=== PATIENT | male | born 1980 | race Caucasian/White ===

== ENCOUNTER 2017-04-05 22:56 | Emergency (ER) | payer OTHER ==
[~2017-04-05] VITALS: Ht 162.6 cm; Wt 77.1 kg
[~2017-04-05 22:56] MED LIST: ALBU8.5H2 IH; PRED20TA PO
[2017-04-05] MEDS ORDERED: HYDR-3812 PO (23:41)
--- NOTE | 2017-04-05 23:42 | ED EENT ---
History of Present Illness General Chief Complaint: Dental Problems/Pain Stated Complaint: TOOTH ACHE Nursing Triage Note: c/o R lower dental pain x 4 hours, reports motrin isn't helping pain Source: patient Exam Limitations: no limitations History of Present Illness Time seen by provider: 23:37 Initial Comments Patient has ER by private conveyance because about 5 hours ago he was biting down on something and chipped off a tooth on the right lower jaw. He says he has a known large cavity there and is seen by [facility] in [place]. He says probably walk and and be seen Saturday morning and that was planned. He is taking ibuprofen 800 mg and Tylenol 650 mg and still having a lot of pain. He has nystatin at home but has not used it yet. He is not having any fevers or chills nausea or vomiting. He is not having any drainage from his tooth or his mouth. Allergies and Home Medications Allergies Coded Allergies: No Known Drug Allergies (Unverified , 02/18/15) Home Medications No Active Prescriptions or Reported Meds Review of Systems Constitutional: No chills, No fever, No malaise Nose: denies pain, denies bloody discharge Mouth: see HPI, denies clots, denies loose teeth, pain, denies swelling, denies bloody discharge, denies purulent discharge, denies previous injury Throat: denies pain, denies hoarse Respiratory: No cough, No short of breath Skin: No pruritus, No rash Past Rbzpjqa-Sjcrbb-Wivqci Hx Patient Social History Alcohol Use: Denies Use Recreational Drug Use: No Smoking Status: Current Everyday Smoker Type Used: Cigarettes Recent Foreign Travel: No Contact w/Someone Who Travel: No Recent Infectious Disease Expo: No Recent Hopitalizations: No Seasonal Allergies Seasonal Allergies: Yes Surgeries HX Surgeries: Yes Surgeries: Appendectomy, Gallbladder Respiratory Hx Respiratory Disorders: No Cardiovascular Hx Cardiac Disorders: Yes Cardiac Disorders: High Cholesterol Neurological Hx Neurological Disorders: No Reproductive System Hx Reproductive Disorders: No Sexually Transmitted Disease: No Genitourinary Hx Genitourinary Disorders: No Gastrointestinal Hx Gastrointestinal Disorders: Yes Gastrointestinal Disorders: Gall Bladder Disease Musculoskeletal Hx Musculoskeletal Disorders: No Endocrine Hx Endocrine Disorders: No HEENT HX ENT Disorders: No Cancer Hx Cancer: No Psychosocial Hx Psychiatric Problems: Yes Behavioral Health Disorders: PTSD Integumentary HX Skin/Integumentary Disorder: No Blood Transfusions Hx Blood Disorders: No Family Medical History Significant Family History: Diabetes, Hypertension Family Medial History: Cardiovascular disease Hypertension Physical Exam Vital Signs Vital Sign - Last 12Hours 04/05/17 23:05 Temp 98.7 Pulse 76 Resp 18 B/P (MAP) 149/98 Pulse Ox 76 O2 Delivery Room Air General Appearance: WD/WN, no apparent distress Eyes: bilateral eye EOMI, bilateral eye PERRL, bilateral eye normal inspection Ears: bilateral ear auricle normal Nose: normal inspection, No discharge, No sinus tenderness Mouth/Throat: dental tenderness, No excessive drooling, other (diffuse dental caries with a fresh broken chip off of a mostly lower right mandible anterior molar.) Neurologic/Psychiatric: alert, oriented x 3 Skin: normal color, warm/dry Progress/Results/Core Measures Results/Orders Vital Signs/I&O Vital Sign - Last 12Hours 04/05/17 23:05 Temp 98.7 Pulse 76 Resp 18 B/P (MAP) 149/98 Pulse Ox 76 O2 Delivery Room Air Blood Pressure Mean: 115 Departure Impression Impression: Primary Impression: Dental caries Disposition: 01 HOME, SELF-CARE Condition: Stable Departure-Patient Inst. Decision time for Depature: 23:39 Referrals: BRENDON PIMENTEL MD (PCP/Family) Primary Care Physician Patient Instructions: Fractured Tooth (DC) Add. Discharge Instructions: He should continue to take Tylenol 1000 mg every 8 hours as needed as well as ibuprofen 800 mg every 8 hours as needed. You can apply heat to the area alternated with ice. He can also use distraction such as watching TV or reading about. If she cannot get her pain controlled these methods then you also be given a prescription for hydrocodone. While you're on hydrocodone you can have constipation or drowsiness. He should not drive or using this medicine. If you have constipation you should use a laxative such as MiraLAX. If you're having strong fever or purulence coming from her mouth and you should return to the ER immediately. Otherwise plan on following up with your dentist Saturday. All discharge instructions reviewed with patient and/or family. Voiced understanding. Scripts Hydrocodone/Acetaminophen (Hydrocodon -Acetaminophen 5-325) 1 Each Tablet 1 EACH PO Q6H Y for BREAKTHROUGH PAIN, #8 TAB 0 Refills Prov: SUE ROSADO 04/05/17 Work/School Note: Work Release Form Date Seen in the Emergency Department: Apr 05, 2017 Return to Work: Apr 06, 2017 Restrictions: No Restrictions Copy Copies To 1: BRENDON PIMENTEL MD, TITUS J Apr 05, 2017 23:42
[2017-04-05 23:46] VITALS: BP 149/98
--- OUTSIDE RECORDS SUMMARY | 2017-04-09 08:35 | XMS REPORT | CCD ---
Author Author JIM TOBAR Unknown Address [address] [address] [address] [place], [place] [id number] Care Team Providers Care Putty Maker Name Role Phone [facility] Attphys ROSARIONADIA DO Prisurg W., CONY Orozco NASST T., GIAN NEWBY NASST J., SAMM NASST B., CINTHYA NASST K., YE NASST S., KAMLESH Palafox NASST C., ROZINA NASST R., ELIJAH NASST R., LUKE Starks NASST B., SHARAN NASST Vital Signs Vital Sign Value Unit Date/Time Recent/Initial? Weight Measured 203.6 lbs 01/12/2016 19:30 Initial VS Height 0.64 in 01/12/2016 19:30 Initial VS BMI (Body Mass Index) 75.02 kg/m^2 01/12/2016 19:30 Initial VS BSA (Body Surface Area) 0.2 m^2 01/12/2016 19:30 Initial VS BP Systolic 116 mmHg 01/12/2016 19:45 Initial VS BP Diastolic 68 mmHg 01/12/2016 19:45 Initial VS Respiratory Rate 20 bpm 01/12/2016 19:45 Initial VS Heart Rate 97 bpm 01/12/2016 19:45 Initial VS O2 % BldC Oximetry 96 % 01/12/2016 19:45 Initial VS Body Temperature 98.3 degrees 01/12/2016 19:45 Initial VS BP Systolic 127 mmHg 01/14/2016 10:27 Most Recent VS BP Diastolic 88 mmHg 01/14/2016 10:27 Most Recent VS Respiratory Rate 18 bpm 01/14/2016 10:27 Most Recent VS Heart Rate 86 bpm 01/14/2016 10:27 Most Recent VS O2 % BldC Oximetry 96 % 01/14/2016 10:27 Most Recent VS Body Temperature 98.5 degrees 01/14/2016 10:27 Most Recent VS Allergies Allergy Code Allergy Type Reaction Status No Known Drug Allergies 0 No known drug allergies Active Procedures Procedure Code Procedure Type Date CX CHEST [address] 01/14/2016 CT MAXILLOFACIAL W/CONTRAST 189420904 SNOMED CT 2015 ABDOMEN ACUTE SERIES 7493224 SNOMED CT 01/12/2016 CULTURE BLOOD 32201351 SNOMED CT 01/14/2016 CULTURE BLOOD 48569057 SNOMED CT 01/14/2016 BASIC METABOLIC PANEL 312204004 SNOMED CT 01/14/2016 CBC W/ AUTO DIFF (RFLX MAN DIFF IF IND) 4332626 SNOMED CT 01/14/2016 HGB A1C (SEND-OUT) 46200215 SNOMED CT 01/12/2016 LIPID PANEL 30854538 [address] 01/13/2016 COMPREHENSIVE METABOLIC PANEL 927050633 SNOMED CT 2015 CBC W/ AUTO DIFF (RFLX MAN DIFF IF IND) 8102453 SNOMED CT 01/13/2016 LACTIC ACID 982[address] 01/12/2016 LACTIC ACID 1047[address] 01/12/2016 INFLUENZA A & B 906936399 SNOMED CT 01/12/2016 RAPID DRUG SCREEN 479889188 SNOMED CT 01/12/2016 UA ROUTINE C&S IF IND 569411400 SNOMED CT 01/12/2016 C REACTIVE PROTEIN 30073667 SNOMED CT 01/12/[address] 01/12/[address] 01/12/2016 TROPONIN-I ADV 294372854 SNOMED CT 01/12/2016 COMPREHENSIVE METABOLIC PANEL 658632115 SNOMED CT 2015 CBC W/ AUTO DIFF (RFLX MAN DIFF IF IND) 8495315 SNOMED CT 01/12/2016 ^CBC W/ MANUAL DIFF 50562492 SNOMED CT 01/14/2016 ^CBC W/ MANUAL DIFF 83068415 SNOMED CT 01/13/2016 ^UA WITH MICRO 326175931 SNOMED CT 01/12/2016 ^CBC W/ MANUAL DIFF 82519756 [facility] CT 01/12/2016 LOCM 300-349 MG/ML, PER ML 783880303 [facility] 01/12/2016 History of Immunizations Unknown or Not Available. Problems Problem Code Start Date Resolved Date Status Facial cellulitis 993991835 Active Results BASIC METABOLIC PANEL - Collect Date/Time: 01/14/2016 06:10 Test Name Code Test Result Test Units Test Ref Range GLUCOSE 2345-7 107 MG/DL L=70 H=100 SODIUM 2951-2 135 MEQ/L L=135 H=148 POTASSIUM 2823-3 4.1 MEQ/L L=3.5 H=5.3 CHLORIDE 2075-0 107 MEQ/L L=96 H=110 CO2 2028-9 20 MEQ/L L=22 H=29 BUN 3094-0 14 MG/DL L=8 H=22 CREATININE 2160-0 0.8 MG/DL L=0.6 H=1.6 CALCIUM 67428-2 8.2 MG/DL L=8.2 H=10.6 AGE 35 yrs GFR NonAA 111 GFR AA 135 eGFR >60 N/A eGFR AA* >60 N/A COMPREHENSIVE METABOLIC PANEL - Collect Date/Time: 01/13/2016 06:45 Test Name Code Test Result Test Units Test Ref Range GLUCOSE 2345-7 120 MG/DL L=70 H=100 SODIUM 2951-2 137 MEQ/L L=135 H=148 POTASSIUM 2823-3 3.8 MEQ/L L=3.5 H=5.3 CHLORIDE 2075-0 107 MEQ/L L=96 H=110 CO2 2028-9 20 MEQ/L L=22 H=29 BUN 3094-0 19 MG/DL L=8 H=22 CREATININE 2160-0 1.0 MG/DL L=0.6 H=1.6 SGOT/AST 1920-8 20 IU/L L=10 H=40 SGPT/ALT 1742-6 35 IU/L L=8 H=54 ALK PHOS 6768-6 66 IU/L L=35 H=115 TOTAL PROTEIN 2885-2 6.5 G/DL L=5.5 H=8.5 ALBUMIN 1751-7 3.9 G/DL L=3.1 H=5.4 TOTAL BILI 1975-2 0.7 MG/DL L=0.0 H=1.5 CALCIUM 88556-9 8.7 MG/DL L=8.2 H=10.6 AGE 35 yrs GFR NonAA 86 GFR AA 104 eGFR >60 N/A eGFR AA* >60 N/A COMPREHENSIVE METABOLIC PANEL - Collect Date/Time: 01/12/2016 15:40 Test Name Code Test Result Test Units Test Ref Range GLUCOSE 2345-7 121 MG/DL L=70 H=100 SODIUM 2951-2 136 MEQ/L L=135 H=148 POTASSIUM 2823-3 3.5 MEQ/L L=3.5 H=5.3 CHLORIDE 2075-0 104 MEQ/L L=96 H=110 CO2 2028-9 20 MEQ/L L=22 H=29 BUN 3094-0 18 MG/DL L=8 H=22 CREATININE 2160-0 1.0 MG/DL L=0.6 H=1.6 SGOT/AST 1920-8 25 IU/L L=10 H=40 SGPT/ALT 1742-6 43 IU/L L=8 H=54 ALK PHOS 6768-6 78 IU/L L=35 H=115 TOTAL PROTEIN 2885-2 7.2 G/DL L=5.5 H=8.5 ALBUMIN 1751-7 4.4 G/DL L=3.1 H=5.4 TOTAL BILI 1975-2 0.7 MG/DL L=0.0 H=1.5 CALCIUM 29633-7 9.5 MG/DL L=8.2 H=10.6 AGE 35 yrs GFR NonAA 86 GFR AA 104 eGFR >60 N/A eGFR AA* >60 N/A LIPASE - Collect Date/Time: 01/12/2016 15:40 Test Name Code Test Result Test Units Test Ref Range LIPASE 3040-3 17 U/L L=8 H=78 LIPID PANEL - Collect Date/Time: 01/13/2016 06:45 Test Name Code Test Result Test Units Test Ref Range TRIGLYCERIDES 3043-7 258 MG/DL L=0 H=135 CHOLESTEROL 2093-3 230 MG/DL L=0 H=199 HDL 2085-9 23 MG/DL L=27 H=67 TOT CHOL/HDL 10.0 L=0.0 H=5.0 LDL (CALC) 2089-1 155 MG/DL L=0 H=129 RAPID DRUG SCREEN - Collect Date/Time: 01/12/2016 17:14 Test Name Code Test Result Test Units Test Ref Range Cannabinoids (THC) NEGATIVE N/A NEG: < 50 ng/ ml Phencyclidine (PCP) NEGATIVE N/A NEG: < 25 ng/ ml Cocaine NEGATIVE N/A NEG: < 300 ng/ml Methamphetamine NEGATIVE N/A NEG: < 1000 ng/ml Opiates NEGATIVE N/A NEG: < 300 ng/ml Amphetamine NEGATIVE N/A NEG: < 1000 ng/ml Benzodiazepines NEGATIVE N/A NEG: < 300 ng/ml Tricyclic Antidepres NEGATIVE N/A NEG: < 300 ng/ ml Methadone NEGATIVE N/A NEG: < 300 ng/ml Barbiturates NEGATIVE N/A NEG: < 200 ng/ml Oxycodone NEGATIVE N/A NEG: < 100 ng/ml Propoxyphene (PPX) NEGATIVE N/A NEG: < 300 ng/ ml CBC W/ AUTO DIFF (RFLX MAN DIFF IF IND) - Collect Date/Time: 01/14/2016 06:10 Test Name Code Test Result Test Units Test Ref Range WBC 28599-3 11.8 TH/CMM L=4.5 H=10.8 RBC 789-8 4.40 ML/CMM L=4.70 H=6.10 HGB 718-7 12.5 G/DL L=14.0 H=18.0 HCT 4544-3 38.4 % L=42.0 H=52.0 MCV 87 FL L=81 H=99 MCH 28.4 PG L=27.0 H=33.0 MCHC 32.6 G/DL L=31.0 H=36.0 RDW SD 45 FL L=36 H=50 RDW CV 14.0 % L=0.0 H=14.8 MPV 9.1 FL L=9.3 H=12.5 PLT 777-3 170 TH/CMM L=130 H=440 NRBC# 0.00 TH/CMM L=0.00 H=0.00 NRBC% 0.0 /100WBC L=0.0 H=2.0 %NEUT 79.7 % %LYMP 10.1 % %MONO 8.5 % %EOS 0.7 % %BASO 0.6 % #NEUT 9.42 TH/CMM L=2.10 H=8.20 #LYMP 1.20 TH/CMM L=0.90 H=5.20 #MONO 1.01 TH/CMM L=0.16 H=1.00 #EOS 0.08 TH/CMM L=0.00 H=0.80 #BASO 0.07 TH/CMM L=0.00 H=0.20 SEGS 79 % BANDS 5 % LYMPHS 11 % MONOS 5 % MANUAL DIFF SEE BELOW N/A ATYP LYMPHS FEW N/A CBC W/ AUTO DIFF (RFLX MAN DIFF IF IND) - Collect Date/Time: 01/13/2016 06:45 Test Name Code Test Result Test Units Test Ref Range WBC 82801-9 22.8 TH/CMM L=4.5 H=10.8 RBC 789-8 4.88 ML/CMM L=4.70 H=6.10 HGB 718-7 13.8 G/DL L=14.0 H=18.0 HCT 4544-3 41.7 % L=42.0 H=52.0 MCV 86 FL L=81 H=99 MCH 28.3 PG L=27.0 H=33.0 MCHC 33.1 G/DL L=31.0 H=36.0 RDW SD 43 FL L=36 H=50 RDW CV 13.5 % L=0.0 H=14.8 MPV 9.4 FL L=9.3 H=12.5 PLT 777-3 206 TH/CMM L=130 H=440 NRBC# 0.00 TH/CMM L=0.00 H=0.00 NRBC% 0.0 /100WBC L=0.0 H=2.0 %NEUT 88.7 % %LYMP 4.4 % %MONO 5.6 % %EOS 0.0 % %BASO 0.4 % #NEUT 20.20 TH/CMM L=2.10 H=8.20 #LYMP 0.99 TH/CMM L=0.90 H=5.20 #MONO 1.27 TH/CMM L=0.16 H=1.00 #EOS 0.00 TH/CMM L=0.00 H=0.80 #BASO 0.08 TH/CMM L=0.00 H=0.20 SEGS 83 % BANDS 13 % LYMPHS 3 % MONOS 1 % MANUAL DIFF SEE BELOW N/A CBC W/ AUTO DIFF (RFLX MAN DIFF IF IND) - Collect Date/Time: 01/12/2016 15:40 Test Name Code Test Result Test Units Test Ref Range WBC 35589-2 27.1 TH/CMM L=4.5 H=10.8 RBC 789-8 5.32 ML/CMM L=4.70 H=6.10 HGB 718-7 15.2 G/DL L=14.0 H=18.0 HCT 4544-3 44.8 % L=42.0 H=52.0 MCV 84 FL L=81 H=99 MCH 28.6 PG L=27.0 H=33.0 MCHC 33.9 G/DL L=31.0 H=36.0 RDW SD 41 FL L=36 H=50 RDW CV 13.3 % L=0.0 H=14.8 MPV 9.3 FL L=9.3 H=12.5 PLT 777-3 224 TH/CMM L=130 H=440 NRBC# 0.00 TH/CMM L=0.00 H=0.00 NRBC% 0.0 /100WBC L=0.0 H=2.0 %NEUT 90.9 % %LYMP 2.8 % %MONO 4.9 % %EOS 0.1 % %BASO 0.4 % #NEUT 24.58 TH/CMM L=2.10 H=8.20 #LYMP 0.77 TH/CMM L=0.90 H=5.20 #MONO 1.32 TH/CMM L=0.16 H=1.00 #EOS 0.03 TH/CMM L=0.00 H=0.80 #BASO 0.10 TH/CMM L=0.00 H=0.20 SEGS 79 % BANDS 11 % LYMPHS 2 % MONOS 7 % BASO 1 % MANUAL DIFF SEE BELOW N/A INFLUENZA A & B - Collect Date/Time: 01/12/2016 15:40 Test Name Code Test Result Test Units Test Ref Range INFLUENZA A & B 6437-8 NO INFLUENZA A OR B DETECTED N/A UA ROUTINE C&S IF IND - Collect Date/Time: 01/12/2016 17:10 Test Name Code Test Result Test Units Test Ref Range COLOR YELLOW N/A NL: YELLOW APPEARANCE CLEAR N/A NL: CLEAR SPEC GRAV 1.015 N/A NL: 1.002 - 1.022 pH 6.0 N/A NL: 5 - 9 PROTEIN TRACE N/A NL: NEGATIVE mg/dl GLUCOSE NEGATIVE N/A NL: NEGATIVE mg/dl KETONE NEGATIVE N/A NL: NEGATIVE mg/dl BILIRUBIN NEGATIVE N/A NL: NEGATIVE BLOOD NEGATIVE N/A NL: NEGATIVE NITRITE NEGATIVE N/A NL: NEGATIVE LEUK SCREEN NEGATIVE N/A NL: NEGATIVE MICRO INDICATED? SEE BELOW N/A WBC/HPF NEGATIVE N/A NL: NEGATIVE RBC/HPF NEGATIVE N/A NL: NEGATIVE CASTS/LPF NEGATIVE N/A NL: NEGATIVE CRYSTALS NEGATIVE N/A NL: NEGATIVE MUCOUS THRDS NEGATIVE N/A NL: NEGATIVE BACTERIA NEGATIVE N/A NL: NEGATIVE EPITH CELLS FEW SQUAMOUS N/A NL: NEGATIVE TRICHOMONAS NEGATIVE N/A NL: NEGATIVE YEAST NEGATIVE N/A NL: NEGATIVE CULT SET UP? NO N/A C REACTIVE PROTEIN - Collect Date/Time: 01/12/2016 15:40 Test Name Code Test Result Test Units Test Ref Range C REACTIVE PROTEIN 1988-5 1.1 MG/DL L=0.0 H= 1.0 TROPONIN-I ADV - Collect Date/Time: 01/12/2016 15:40 Test Name Code Test Result Test Units [place] [address]-8 <0.04 ng/mL L=0.04 H= 0.40 HGB A1C (SEND-OUT) - Collect Date/Time: 01/12/2016 21:35 Test Name Code Test Result Test Units Test Ref Range Hemoglobin A1c 4548-4 6.2 % 4.8-5.6 Estim. Avg Glu (eAG) 23042-6 131 mg/dL LACTIC ACID - Collect Date/Time: 01/12/2016 21:35 Test Name Code Test Result Test Units Test Ref Range LACTIC ACID 2524-7 1.5 mmol/L L=0.5 H=1.6 LACTIC ACID - Collect Date/Time: 01/12/2016 15:40 Test Name Code Test Result Test Units Test Ref Range LACTIC ACID 2524-7 2.3 mmol/L L=0.5 H=1.6 MAGNESIUM - Collect Date/Time: 01/12/2016 15:40 Test Name Code Test Result Test Units Test Ref Range MAGNESIUM 57881-9 2.2 MG/DL L=1.7 H=2.8 Active Medications Medications Administered During Visit Medication Dose Units Frequency Route Date/ Time of Last Dose ACETAMINOPHEN [TYLENOL] TABS 325MG 650 MG PRN PO 01/13/2016 01:15 CLINDAMYCIN IV [PREDEFINED]: 600 MG ADV Q6H 01/12/2016 20:45 ACETAMINOPHEN ES [TYLENOL] TAB : 500 MG 1000 MG PRN PO 01/13/2016 23:51 DANIAL-COLACE (NEW FORMULATION) TABLET 2 TAB BID PO 01/14/2016 08:33 NORCO [HYDROCODONE/APAP] 5/325MG TAB 1 TAB PRN PO 01/14/2016 09:35 CLINDAMYCIN IV [PREDEFINED]: 600 MG ADV Q6H 01/14/2016 08:33 ONDANSETRON [ZOFRAN] INJ 4 MG/2 ML VIAL 4 MG PRN Q 6 HRS SIVP 01/13/2016 01:08 NS 1000 ML IV [PREDEFINED] (7983) CONT IV 01/13/2016 22:45 LEVOFLOXACIN [LEVAQUIN] IV BAMG Q24H 01/14/2016 01:04 FUROSEMIDE (LASIX): 40 MG/4 ML VIAL 40 MG X1 IVP 01/14/2016 09:35 Encounters Encounter Diagnosis Diagnosis Code Start Date Sepsis, unspecified organism [id number] 01/12/2016 Social History Smoking Status Code Start Date End Date Current every day smoker [id number] Patient Decision Aids Patient Decision Aid Cellulitis Discharge Instructions You were admitted to [facility] on 01/12/2016 18:42 with a principal diagnosis of Sepsis, unspecified organism You had the following tests done: BASIC METABOLIC PANEL C REACTIVE PROTEIN CBC W/ AUTO DIFF (RFLX MAN DIFF IF IND) CBC W/ AUTO DIFF (RFLX MAN DIFF IF IND) CBC W/ AUTO DIFF (RFLX MAN DIFF IF IND) COMPREHENSIVE METABOLIC PANEL COMPREHENSIVE METABOLIC PANEL HGB A1C (SEND-OUT) INFLUENZA A & B LACTIC ACID LACTIC ACID LIPASE LIPID PANEL MAGNESIUM RAPID DRUG SCREEN TROPONIN-I ADV UA ROUTINE C&S IF IND You were discharged from [facility] on 01/14/2016 12:00 Should you have any questions prior to discharge, please contact a member of your healthcare team. If you have left the hospital and have any questions, please contact your primary care physician. HOME DIET: Regular. CONDITION AT DISMISSAL Stable. ACTIVITY INSTRUCTIONS(list limitations): Activity as Tolerated. SCRIPTS WRITTEN BY DOCTOR GIVEN TO PATIENT? Clindamycin 300mg Oral tablet one by mouth three times a day, Hydrocodone 5mg one tablet by mouth as needed every 4 hours. FOLLOW UP CARE - SEE YOUR PHYSICIAN: Make own appointment, In one week. FOLLOW UP APPOINTMENT: Follow up with dentist for general exam PRIMARY CARE PHYSICIAN OR PRACTITIONER: Roland Castillo Russell CONTACT PHYSICIAN IF YOU EXPERIENCE ANY: Temperature >102 PERSONAL ITEMS RETURNED: Yes. INSTRUCTIONS GIVEN AND DISCHARGE TO: Patient. VOICES UNDERSTANDING OF INSTRUCTIONS: Yes. INSTRUCTIONS GIVEN BY (TYPE IN NAME AND DATE) Cony Palacios RN 01/14/16 CHIEF COMPLAINT: Pt c/o nausea, vomiting and decrease in LOC at work. went and picked him up at work then brought to hospital. Pt c/o pain in the left side of face. Pt c/o swelling. Pt has hx. PTSD and TBI. Chief Complaint and Reason For Visit Chief Complaint Date of Onset SEPSIS FACIAL ABSCESS Function Status Unknown or Not Available. Plan of Care Unknown or Not Available. Referral/Transition of Care Unknown or Not Available.
--- OUTSIDE RECORDS SUMMARY | 2017-04-09 08:35 | XMS REPORT ---
Author Author Yordy Katz [facility] Address [address] [place], [place] [address] Care Team Providers Care Attendant Child Activity Name Role Phone Yordy Katz PCP Allergies and Adverse Reactions Name Reaction Notes No known drug allergy Plan of Treatment Not available. Medications Active Name Start Date Estimated Completion Date SIG Comments Augmentin 875-125 mg oral tablet 09/27/2016 10/04/2016 take 1 tablet by oral route every 12 hours for 7 days Problem List Not available. Vital Signs Date Time BP-Sys(mm[Hg] BP-Archana(mm[Hg]) HR(bpm) RR(rpm) Temp WT HT HC BMI BSA BMI Percentile O2 Sat(%) 09/27/2016 6:44:00 PM 138 mmHg 96 mmHg 66 bpm 98.6 F 198 lbs 63 in 35.07 kg/m2 2.00 m2 98 % Social History Name Description Comments Tobacco Current every day smoker History of Procedures Not available. Results Summary Not available. History Of Immunizations Not available. History of Past Illness Name Date of Onset Comments Sepsis Hypercholesteremia Acute non-recurrent maxillary sinusitis Sep 27 2016 6:48PM Payers Insurance Name Company Name Plan Name Plan Number Policy Number Policy Group Number Start Date [facility] [id number] N/A History of Encounters Visit Date Visit Type Provider 09/27/2016 Office visit Yordy Katz APRN 01/13/2016 Hospital Merritt Rincon MD 01/12/2016 [facility] Merritt Rincon MD
--- OUTSIDE RECORDS SUMMARY | 2017-04-09 08:36 | XMS REPORT | CCD ---
Author Author SAMM STOVALL Organization Unknown Address [address] [facility] [address] [place], [place] [address] Care Team Providers Care Material Handler 1St Shift Name Role Phone [facility] Attphys NADIA ROSARIO DO Prisurg W., CONY Orozco NASST T., [...] Procedure Type Date CX CHEST [id number] 01/14/2016 CT MAXILLOFACIAL W/CONTRAST 728679732 SNOMED CT 2015 ABDOMEN ACUTE SERIES 7770513 SNOMED CT 01/12/2016 CULTURE BLOOD 57579404 SNOMED CT 01/14/2016 CULTURE BLOOD 29181291 SNOMED CT 01/14/2016 BASIC METABOLIC PANEL 639103828 SNOMED CT 01/14/2016 CBC W/ AUTO DIFF (RFLX MAN DIFF IF IND) 3899502 SNOMED CT 01/14/2016 HGB A1C (SEND-OUT) 47688351 SNOMED CT 01/12/2016 LIPID PANEL 28168590 SNOMED CT 01/13/2016 COMPREHENSIVE METABOLIC PANEL 650577109 SNOMED CT 2015 CBC W/ AUTO DIFF (RFLX MAN DIFF IF IND) 2615438 SNOMED CT 01/13/2016 LACTIC ACID 9055811 SN[address] 01/12/2016 LACTIC ACID 7132247 SNOMED CT 01/12/2016 INFLUENZA A & B 181157938 SNOMED CT 01/12/2016 RAPID DRUG SCREEN 697795042 SNOMED CT 01/12/2016 UA ROUTINE C&S IF IND 482315647 SNOMED CT 01/12/2016 C REACTIVE PROTEIN 31138497 SNOMED CT 01/12/[address] 01/12/[address] 01/12/2016 TROPONIN-I ADV 644254955 SNOMED CT 01/12/2016 COMPREHENSIVE METABOLIC PANEL 920806814 SNOMED CT 2015 CBC W/ AUTO DIFF (RFLX MAN DIFF IF IND) 6075497 SNOMED CT 01/12/2016 ^CBC W/ MANUAL DIFF 61670680 SNOMED CT 01/14/2016 ^CBC W/ MANUAL DIFF 41835570 SNOMED CT 01/13/2016 ^UA WITH MICRO 158578943 SNOMED CT 01/12/2016 ^CBC W/ MANUAL DIFF 06873247 [facility] CT 01/12/2016 LOCM 300-349 MG/ML, PER ML [id number] [facility] 01/12/2016 History of Immunizations Unknown or Not Available. Problems Problem Code Start Date Resolved Date Status Facial cellulitis 867339143 Active Results BASIC METABOLIC PANEL - Collect Date/Time: 01/14/2016 06:10 Test Name Code Test Result Test Units Test Ref Range GLUCOSE 2345-7 107 MG/DL L=70 H=100 SODIUM 2951-2 135 MEQ/L L=135 H=148 POTASSIUM 2823-3 4.1 MEQ/L L=3.5 H=5.3 CHLORIDE 2075-0 107 MEQ/L L=96 H=110 CO2 2028-9 20 MEQ/L L=22 H=29 BUN 3094-0 14 MG/DL L=8 H=22 CREATININE 2160-0 0.8 MG/DL L=0.6 H=1.6 CALCIUM 04775-1 8.2 MG/DL L=8.2 H=10.6 AGE 35 yrs [...] BILI 1975-2 0.7 MG/DL L=0.0 H=1.5 CALCIUM 51851-4 8.7 MG/DL L=8.2 H=10.6 AGE 35 yrs [...] BILI 1975-2 0.7 MG/DL L=0.0 H=1.5 CALCIUM 30200-7 9.5 MG/DL L=8.2 H=10.6 AGE 35 yrs [...] Result Test Units Test Ref Range WBC 10436-3 11.8 TH/CMM L=4.5 H=10.8 RBC 789-8 4.40 [...] Result Test Units Test Ref Range WBC 04723-6 22.8 TH/CMM L=4.5 H=10.8 RBC 789-8 4.88 [...] Result Test Units Test Ref Range WBC 86849-1 27.1 TH/CMM L=4.5 H=10.8 RBC 789-8 5.32 [...] Test Units [place] [address]-8 <0.04 ng/mL L=0.04 H= 0.40 HGB A1C (SEND-OUT) - Collect Date/Time: 01/12/2016 21:35 Test Name Code Test Result Test Units Test Ref Range Hemoglobin A1c 4548-4 6.2 % 4.8-5.6 Estim. Avg Glu (eAG) 30517-9 131 mg/dL LACTIC ACID - Collect Date/Time: [...] Result Test Units Test Ref Range MAGNESIUM 01124-1 2.2 MG/DL L=1.7 H=2.8 Active Medications Medications [...] Date End Date Current every day smoker [id number] Patient Decision Aids Patient Decision Aid Cellulitis Discharge Instructions You were admitted to [facility] on 01/12/2016 18:42 with a principal [...] C&S IF IND You were discharged from [facility] on 01/14/2016 12:00 Should you have [...] exam PRIMARY CARE PHYSICIAN OR PRACTITIONER: Roland Goss CONTACT PHYSICIAN IF YOU EXPERIENCE ANY: Temperature [...]
--- OUTSIDE RECORDS SUMMARY | 2017-04-09 08:36 | XMS REPORT | CCD ---
Author Author SAMM STOVALL Organization Unknown Address [address] [facility] [address] [place], [place] [id number] Care Team Providers Care Patient Intake Coordinator Name Role Phone [facility] Attphys NADIA ROSARIO DO Prisurg W., CONY Orozco NASST T., GIAN NEWBY NASST J., SAMM NASST B., CINTHYA NASST K., YE NASST S., KAMLESH Palafox NASST C., ROZINA NASST R., EILJAH NASST R., LUKE Starks NASST B., SHARAN [...] Procedure Type Date CX CHEST [address] 01/14/2016 CT MAXILLOFACIAL W/CONTRAST 499217926 SNOMED CT 2015 ABDOMEN ACUTE SERIES 6468289 SNOMED CT 01/12/2016 CULTURE BLOOD 76875014 SNOMED CT 01/14/2016 CULTURE BLOOD 04845069 SNOMED CT 01/14/2016 BASIC METABOLIC PANEL 316126635 SNOMED CT 01/14/2016 CBC W/ AUTO DIFF (RFLX MAN DIFF IF IND) 5084991 SNOMED CT 01/14/2016 HGB A1C (SEND-OUT) 05822975 SNOMED CT 01/12/2016 LIPID PANEL 16397003 SNOMED CT 01/13/2016 COMPREHENSIVE METABOLIC PANEL 107231521 SNOMED CT 2015 CBC W/ AUTO DIFF (RFLX MAN DIFF IF IND) 1362671 SNOMED CT 01/13/[address] 01/12/2016 LACTIC ACID 3152218 [address] 01/12/2016 INFLUENZA A & B 597302323 SNOMED CT 01/12/2016 RAPID DRUG SCREEN 470607554 SNOMED CT 01/12/2016 UA ROUTINE C&S IF IND 171441689 SNOMED CT 01/12/2016 C REACTIVE PROTEIN 57146622 SNOMED CT 01/12/[address] 01/12/[address] 01/12/2016 TROPONIN-I ADV 311374425 SNOMED CT 01/12/2016 COMPREHENSIVE METABOLIC PANEL 549162590 SNOMED CT 2015 CBC W/ AUTO DIFF (RFLX MAN DIFF IF IND) 6039872 SNOMED CT 01/12/2016 ^CBC W/ MANUAL DIFF 76295029 SNOMED CT 01/14/2016 ^CBC W/ MANUAL DIFF 10143450 SNOMED CT 01/13/2016 ^UA WITH MICRO 292419795 SNOMED CT 01/12/2016 ^CBC W/ MANUAL DIFF 75867762 [facility] CT 01/12/2016 LOCM 300-349 MG/ML, PER ML 713049819 [facility] 01/12/2016 History of Immunizations Unknown or Not Available. Problems Problem Code Start Date Resolved Date Status Facial cellulitis 011838052 Active Results BASIC METABOLIC PANEL - Collect Date/Time: 01/14/2016 06:10 Test Name Code Test Result Test Units Test Ref Range GLUCOSE 2345-7 107 MG/DL L=70 H=100 SODIUM 2951-2 135 MEQ/L L=135 H=148 POTASSIUM 2823-3 4.1 MEQ/L L=3.5 H=5.3 CHLORIDE 2075-0 107 MEQ/L L=96 H=110 CO2 2028-9 20 MEQ/L L=22 H=29 BUN 3094-0 14 MG/DL L=8 H=22 CREATININE 2160-0 0.8 MG/DL L=0.6 H=1.6 CALCIUM 33664-6 8.2 MG/DL L=8.2 H=10.6 AGE 35 yrs [...] BILI 1975-2 0.7 MG/DL L=0.0 H=1.5 CALCIUM 74348-2 8.7 MG/DL L=8.2 H=10.6 AGE 35 yrs [...] BILI 1975-2 0.7 MG/DL L=0.0 H=1.5 CALCIUM 04926-4 9.5 MG/DL L=8.2 H=10.6 AGE 35 yrs [...] Result Test Units Test Ref Range WBC 67953-5 11.8 TH/CMM L=4.5 H=10.8 RBC 789-8 4.40 [...] Result Test Units Test Ref Range WBC 26472-9 22.8 TH/CMM L=4.5 H=10.8 RBC 789-8 4.88 [...] Result Test Units Test Ref Range WBC 24402-2 27.1 TH/CMM L=4.5 H=10.8 RBC 789-8 5.32 [...] Test Units [place] [address]-8 <0.04 ng/mL L=0.04 H= 0.40 HGB A1C (SEND-OUT) - Collect Date/Time: 01/12/2016 21:35 Test Name Code Test Result Test Units Test Ref Range Hemoglobin A1c 4548-4 6.2 % 4.8-5.6 Estim. Avg Glu (eAG) 65564-9 131 mg/dL LACTIC ACID - Collect Date/Time: [...] Result Test Units Test Ref Range MAGNESIUM 58047-6 2.2 MG/DL L=1.7 H=2.8 Active Medications Medications [...] Date End Date Current every day smoker [id number] Patient Decision Aids Patient Decision Aid Cellulitis Discharge Instructions You were admitted to [facility] on 01/12/2016 18:42 with a principal [...] C&S IF IND You were discharged from [facility] on 01/14/2016 12:00 Should you have [...]
--- OUTSIDE RECORDS SUMMARY | 2017-04-09 08:36 | XMS REPORT | Continuity of Care Document ---
Author Author [facility] Organization [facility] Address Unknown Phone Unavailable Allergies Active Description Code Type Severity Reaction Onset Reported/Identified Relationship to Patient Clinical Status Yes No Known Drug Allergies [id number] Drug Allergy Unknown N/ A 02/18/2015 Medications Problems Date Dx Coded Attending Type Code Diagnosis Diagnosed By 02/18/2015 NAVID MARTI, LATASHA Christopher Ot 466.0 ACUTE BRONCHITIS 02/18/2015 NAVID MARTI, LATASHA Christopher Ot 786.05 SHORTNESS OF BREATH 02/18/2015 NAVID MARTI, LATASHA Christopher Ot 786.52 PAINFUL RESPIRATION Procedures Results Encounters ACCT No. Visit Date/Time Discharge Status Pt. Type Provider Facility Loc./Unit Complaint [id number] 04/05/2017 22:58:00 2016 23:46:00 DIS Emergency ALONZO MARTI, SUE Orozco [facility] ER TOOTH ACHE [id number] 02/18/2015 10:55:00 2014 13:58:00 DIS Emergency NAVID MARTI, LATASHA Christopher [facility] ER SOA
== END 2017-04-05 23:46 | disposition home or self-care (01) ==
LOC: EDUNIT# 22:56 → ER 22:58
DX: K02.9 Dental caries, unspecified (principal); F43.10 Post-traumatic stress disorder, unspecified; E78.00 Pure hypercholesterolemia, unspecified; F17.210 Nicotine dependence, cigarettes, uncomplicated; Z90.49 Acquired absence of other specified parts of digestive tract
CPT/HCPCS: 99282